=== PATIENT | female | born 1975 ===

== ENCOUNTER 2020-09-29 16:38 | Emergency (ER) | payer SELFPAY ==
[~2020-09-29] VITALS: Ht 170.2 cm; Wt 134.1 kg
[2020-09-29 16:42] VITALS: BP 153/93
[2020-09-29] MEDS ORDERED: acetaminophen 325mg tablet PO ONE (17:40)
== END 2020-09-29 18:26 | disposition home or self-care (01) ==
LOC: ER 16:39
DX: S13.8XXA Sprain of joints and ligaments of other parts of neck, initial encounter (principal); S00.03XA Contusion of scalp, initial encounter; I10 Essential (primary) hypertension; E11.9 Type 2 diabetes mellitus without complications; F17.210 Nicotine dependence, cigarettes, uncomplicated; Z59.0 Homelessness; W18.39XA Other fall on same level, initial encounter; Y93.89 Activity, other specified; Y92.89 Other specified places as the place of occurrence of the external cause; Y99.8 Other external cause status
CPT/HCPCS: 70450; 72125; 99285